=== PATIENT | female | born 1975 | race Caucasian/White ===

== ENCOUNTER 2019-09-20 06:23 | Observation (INO) ==
[2019-09-20] MEDS ORDERED: D5 1/2 NS 1000 ML 1,000 ML IV SCH (06:39)
[2019-09-20] MEDS ORDERED: ANCEF VIAL 1 GRAM IVP ONE (06:39)
[2019-09-20] MEDS ORDERED: ANCEF 1 GRAM IV PREMIX* 1 G/50 ML BAG IV ONE (06:43)
[2019-09-20] MEDS ORDERED: VASOSTRICT INJ 20 UNITS VIAL ONE (07:01)
[2019-09-20] MEDS ORDERED: BETADINE SOLN ONE (07:01)
[2019-09-20] MEDS ORDERED: BETADINE SURGICAL SCRUB ONE (07:02)
[2019-09-20] MEDS ORDERED: DILAUDID INJ ONE (07:07)
[2019-09-20] MEDS ORDERED: FENTANYL INJ 100 mcg ONE (07:07)
[2019-09-20] MEDS ORDERED: QUELICIN (OR ANECTINE) ONE ×2 (07:08→10:30)
[2019-09-20] MEDS ORDERED: PHENERGAN INJ 25 MG IM PRN (08:46)
[2019-09-20] MEDS ORDERED: ZOFRAN INJ 4 MG VIAL IVP PRN (08:46)
[2019-09-20] MEDS ORDERED: DILAUDID INJ IVP PRN (08:46)
[2019-09-20] MEDS ORDERED: REGLAN INJ 10 MG VIAL IVP PRN (08:46)
[2019-09-20] MEDS ORDERED: BENADRYL INJ 50 MG VIAL IVP PRN ×2 (08:46→09:14)
[2019-09-20 08:50] VITALS: BMI 24.6
[2019-09-20] MEDS ORDERED: MORPHINE SULFATE PCA 30 MG IVP PRN (09:14)
[2019-09-20] MEDS ORDERED: TORADOL 30 MG VIAL ONE ×2 (10:04→10:30)
[2019-09-20] MEDS: TORADOL 30 MG VIAL IVP PRN ×3 (10:10→20:26)
[2019-09-20] MEDS ORDERED: VERSED ONE (10:30)
[2019-09-20] MEDS ORDERED: NORCURON INJ 10 MG VIAL ONE (10:30)
[2019-09-20] MEDS ORDERED: NEOSTIGMINE INJ ONE (10:30)
[2019-09-20] MEDS ORDERED: ATROPINE SULFATE ONE (10:30)
[2019-09-20] MEDS ORDERED: ZOFRAN INJ 4 MG VIAL ONE (10:30)
[2019-09-20] MEDS ORDERED: ULTANE GAS IN ONE (10:30)
[2019-09-20] MEDS ORDERED: DIPRIVAN VIAL ONE (10:30)
[2019-09-20] MEDS ORDERED: ROBINUL ONE (10:30)
[2019-09-20] MEDS: D5 1/2 NS 1000 ML 1,000 ML IV SCH ×2 (12:09→20:25)
[2019-09-20] MEDS: ZOFRAN INJ 4 MG VIAL IVP PRN ×2 (14:54→20:29)
[2019-09-20] MEDS ORDERED: PERCOCET TAB 5/325 MG PO PRN (17:54)
[2019-09-20] MEDS ORDERED: COLACE CAP 100 MG PO SCH (21:00)
[2019-09-21] MEDS: TORADOL 30 MG VIAL IVP PRN (00:34)
[2019-09-21] MEDS: D5 1/2 NS 1000 ML 1,000 ML IV SCH ×2 (02:00→10:35)
[2019-09-21 06:20] LABS: BASOPHILS % (AUTO) 0.3 % (0.2-1.0); EOSINOPHILS # (AUTO) 0.1 x10^3/uL (0.0-0.2); EOSINOPHILS % (AUTO) 0.9 % (0.9-2.9); HEMATOCRIT 28.8 % (36.0-47.0); HEMOGLOBIN 9.3 g/dL (12.0-16.0); LYMPHOCYTES # (AUTO) 1.5 X10^3/uL (1.3-2.9); LYMPHOCYTES % (AUTO) 19.8 % (21.0-51.0); MEAN CORPUSCULAR HEMOGLOBIN 25.4 pg (27.0-34.0); MEAN CORPUSCULAR HGB CONC 32.2 g/dL (33.0-35.0); MEAN CORPUSCULAR VOLUME 78.8 fL (80.0-100.0); MEAN PLATELET VOLUME 7.8 fL (7.4-11.0); MONOCYTES # (AUTO) 0.7 x10^3/uL (0.3-0.8); MONOCYTES % (AUTO) 8.7 % (0.0-13.0); NEUTROPHILS # (AUTO) 5.3 x10^3/uL (2.2-4.8); NEUTROPHILS % (AUTO) 70.3 % (42.0-75.0); PLATELET COUNT 342 X10^3/uL (150.0-450.0); RED BLOOD COUNT 3.66 X10^6/uL (3.5-5.4); RED CELL DISTRIBUTION WIDTH 16.1 % (11.6-16.5); WHITE BLOOD COUNT 7.5 X10^3/uL (3.6-10.0)
[2019-09-21 06:30] LABS: BLOOD UREA NITROGEN 3 mg/dL (7-18); CALCIUM 8.2 mg/dL (8.5-10.1); CARBON DIOXIDE 25.1 mmol/L (21-32); CHLORIDE 105 mmol/L (98-107); COR NA(FOR HYPERGLY) 140 mmol/L (136-145); CREATININE 0.66 mg/dL (0.55-1.02); SODIUM 139 mmol/L (136-145); eGFR NON BLACK RACES > 60 (>60)
[2019-09-21 07:13] LABS: HYPOCHROMASIA SLIGHT; PLATELET MORPHOLOGY COMMENT NORMAL (NORMAL)
[2019-09-21 11:20] VITALS: BP 116/59
== END 2019-09-21 11:10 | disposition home or self-care (01) ==
LOC: SURG1 06:23 → MED/SURG 06:23
PROVIDERS: ADMIT Specialist; ATTEND Specialist
DX: N92.5 Other specified irregular menstruation; D50.8 Other iron deficiency anemias; N94.4 Primary dysmenorrhea; R10.2 Pelvic and perineal pain
CPT/HCPCS: 36415; 80048; 85025; A4216; A4222; G0378; J0330; J0461; J0690; J1170; J1885; J2250; J2271; J2405; J2704; J2710; J3010; J3490; S5010

== ENCOUNTER 2021-08-06 13:17 | Observation (INO) ==
[2021-08-06] MEDS ORDERED: TUSSIONEX PENNKINETIC SUSP PO PRN (16:51)
[2021-08-06] MEDS ORDERED: REMDESIVIR 200 MG in NS 250 ML IV 250 ML IV NR (16:53)
[2021-08-06] MEDS: DUONEB 0.5 MG/3 MG (3 mL) NEB SCH ×2 (16:58→21:00)
[2021-08-06] MEDS: PULMICORT NEB TX 0.5 MG NEB SCH ×2 (16:58→21:00)
[2021-08-06] MEDS ORDERED: VITAMIN C PO SCH (17:00)
[2021-08-06 17:04] VITALS: BMI 22.3
[2021-08-06] MEDS: ROBITUSSIN DM PO SCH ×2 (17:45→22:00)
[2021-08-06] MEDS: ZINC SULFATE PO SCH (17:45)
[2021-08-06] MEDS: NS 1/2 1,000 ML IV 1,000 ML IV SCH (17:45)
[2021-08-06] MEDS: LEVAQUIN PREMIX IV 750 MG 750 MG/150 ML BAG IV SCH (17:45)
[2021-08-06] MEDS: VITAMIN D3 125 mcg (5,000 UNITS) PO SCH (17:45)
[2021-08-06] MEDS ORDERED: NS 1/2 1,000 ML IV 1,000 ML IV ONE (17:46)
[2021-08-06 18:12] LABS: BASOPHILS % (AUTO) 0.8 % (0.2-1.0); EOSINOPHILS # (AUTO) 0.1 x10^3/uL (0.0-0.2); EOSINOPHILS % (AUTO) 1.3 % (0.9-2.9); HEMATOCRIT 33.1 % (36.0-47.0); HEMOGLOBIN 11.1 g/dL (12.0-16.0); LYMPHOCYTES # (AUTO) 2.2 X10^3/uL (1.3-2.9); LYMPHOCYTES % (AUTO) 35.1 % (21.0-51.0); MEAN CORPUSCULAR HEMOGLOBIN 27.2 pg (27.0-34.0); MEAN CORPUSCULAR HGB CONC 33.5 g/dL (33.0-35.0); MEAN CORPUSCULAR VOLUME 81.2 fL (80.0-100.0); MEAN PLATELET VOLUME 7.2 fL (7.4-11.0); MONOCYTES # (AUTO) 0.5 x10^3/uL (0.3-0.8); MONOCYTES % (AUTO) 7.6 % (0.0-13.0); NEUTROPHILS # (AUTO) 3.5 x10^3/uL (2.2-4.8); NEUTROPHILS % (AUTO) 55.2 % (42.0-75.0); RED BLOOD COUNT 4.07 X10^6/uL (3.5-5.4); RED CELL DISTRIBUTION WIDTH 15.1 % (11.6-16.5); WHITE BLOOD COUNT 6.3 X10^3/uL (3.6-10.0)
[2021-08-06 18:33] LABS: ALANINE AMINOTRANSFERASE 10 Units/L (12-78); ALBUMIN 3.1 g/dL (3.4-5.0); ALKALINE PHOSPHATASE 87 Units/L (46-116); ASPARTATE AMINO TRANSFERASE 12 Units/L (15-37); BLOOD UREA NITROGEN 11 mg/dL (7-18); CALCIUM 8.5 mg/dL (8.5-10.1); CARBON DIOXIDE 29.4 mmol/L (21-32); CHLORIDE 102 mmol/L (98-107); CKMB % 1.4 % (<4); COR CA(FOR HYPOALB) 9.2 mg/dL (8.5-10.1); CREATINE KINASE 71 Units/L (26-192); CREATINE KINASE MB < 1.0 ng/mL (0-4.0); CREATININE 0.58 mg/dL (0.55-1.02); SODIUM 138 mmol/L (136-145); TOTAL PROTEIN 6.5 g/dL (6.4-8.2); eGFR NON BLACK RACES > 60 (>60)
[2021-08-06] MEDS: SOLU-Medrol 40 MG VIAL IVP SCH (22:00)
[2021-08-06] MEDS ORDERED: POTASSIUM CHL 60 MEQ/NS 0.45% 500 ML IV PRN (23:57)
[2021-08-06] MEDS ORDERED: MICRO K EXTEN CAP 10 MEQ PO PRN (23:57)
[2021-08-06] MEDS ORDERED: MAGNESIUM SULFATE 1 GRAM/100 mL PREMIX 1 G/100 ML BAG IV PRN (23:57)
[2021-08-06] MEDS ORDERED: POTASSIUM CHL 40 MEQ/NS 0.45% 500 ML IV PRN (23:57)
[2021-08-06] MEDS ORDERED: K-RIDER 10 MEQ/NS 100 ML 10 MEQ/100 ML BAG IV PRN (23:57)
[2021-08-06] MEDS ORDERED: KLOR-CON PO PRN (23:57)
[2021-08-06] MEDS ORDERED: POTASSIUM CHLORIDE LIQ 20 MEQ UDC PO PRN (23:57)
[2021-08-06] MEDS ORDERED: K-DUR TAB 20 MEQ PO PRN (23:57)
--- NOTE | 2021-08-07 03:32 | RAD ---
HISTORYCOVID PNEUMONIA Relevant Clinical InformationSTUDYCHEST, 1 VIEWCOMPARISONFINDINGSThe trachea is midline. The cardiac silhouette is unremarkable. The lungs are clear without focal infiltrate or effusion. The bony thorax is unremarkable.IMPRESSIONNo acute cardiopulmonary findings .Electronically signed by: Juan Luis Posadas (August 07, 2021 03:31:25)
[2021-08-07] MEDS ORDERED: NS 1/2 1,000 ML IV 1,000 ML IV ONE ×2 (04:35→21:41)
[2021-08-07 04:51] LABS: BASOPHILS % (AUTO) 0.1 % (0.2-1.0); HEMATOCRIT 32.4 % (36.0-47.0); LYMPHOCYTES # (AUTO) 0.7 X10^3/uL (1.3-2.9); LYMPHOCYTES % (AUTO) 13.4 % (21.0-51.0); MEAN CORPUSCULAR HEMOGLOBIN 27.4 pg (27.0-34.0); MEAN CORPUSCULAR VOLUME 80.5 fL (80.0-100.0); MEAN PLATELET VOLUME 7.1 fL (7.4-11.0); MONOCYTES # (AUTO) 0.1 x10^3/uL (0.3-0.8); MONOCYTES % (AUTO) 1.6 % (0.0-13.0); NEUTROPHILS # (AUTO) 4.6 x10^3/uL (2.2-4.8); NEUTROPHILS % (AUTO) 84.9 % (42.0-75.0); RED BLOOD COUNT 4.02 X10^6/uL (3.5-5.4); RED CELL DISTRIBUTION WIDTH 15.5 % (11.6-16.5); WHITE BLOOD COUNT 5.4 X10^3/uL (3.6-10.0)
[2021-08-07 05:05] LABS: ALANINE AMINOTRANSFERASE 10 Units/L (12-78); ALBUMIN 2.9 g/dL (3.4-5.0); ALKALINE PHOSPHATASE 86 Units/L (46-116); ASPARTATE AMINO TRANSFERASE 13 Units/L (15-37); BLOOD UREA NITROGEN 7 mg/dL (7-18); CALCIUM 7.9 mg/dL (8.5-10.1); CARBON DIOXIDE 25.6 mmol/L (21-32); CHLORIDE 105 mmol/L (98-107); COR CA(FOR HYPOALB) 8.8 mg/dL (8.5-10.1); COR NA(FOR HYPERGLY) 138 mmol/L (136-145); CREATININE 0.59 mg/dL (0.55-1.02); SODIUM 137 mmol/L (136-145); TOTAL PROTEIN 6.3 g/dL (6.4-8.2); eGFR NON BLACK RACES > 60 (>60)
[2021-08-07] MEDS: SOLU-Medrol 40 MG VIAL IVP SCH ×3 (05:24→22:14)
[2021-08-07] MEDS: DUONEB 0.5 MG/3 MG (3 mL) NEB SCH ×3 (05:48→21:00)
--- NOTE | 2021-08-07 06:17 | RAD ---
HISTORYSOB Relevant Clinical InformationSTUDYCHEST, 1 [id number] trachea is midline. The cardiac silhouette is unremarkable. The lungs are clear without focal infiltrate or effusion. The bony thorax is unremarkable.IMPRESSIONNo acute cardiopulmonary findings .Electronically signed by: Juan Luis Posadas (August 07, 2021 06:16:13)
[2021-08-07] MEDS: NS 1/2 1,000 ML IV 1,000 ML IV SCH ×2 (06:31→22:14)
[2021-08-07] MEDS ORDERED: ZOFRAN TAB 4 MG PO PRN (08:34)
[2021-08-07] MEDS: PULMICORT NEB TX 0.5 MG NEB SCH ×2 (09:40→21:00)
[2021-08-07] MEDS: VITAMIN D3 125 mcg (5,000 UNITS) PO SCH (09:45)
[2021-08-07] MEDS: PriLOSEC PO SCH (09:45)
[2021-08-07] MEDS: REMDESIVIR 100 MG in NS 250 ML IV 250 ML IV SCH (09:45)
[2021-08-07] MEDS: ROBITUSSIN DM PO SCH ×3 (09:45→22:13)
[2021-08-07] MEDS: ZINC SULFATE PO SCH (09:45)
[2021-08-07] MEDS: LEVAQUIN PREMIX IV 750 MG 750 MG/150 ML BAG IV SCH (11:30)
--- NOTE | 2021-08-07 11:52 | DR.H&P ---
H&P - History & Physical for Day of: H&P Date: 08/06/21 - Chief Complaint Chief Complaint: COUGH, SOB, FATIGUE, FEVER, NAUSEA, COVID POSITIVE - History of Present Illness History of Present Illness: IS A 46 YEAR OLD PATIENT OF OURS. SHE PRESENTED A DIRECT ADMISSION FOR TREATMENT OF ACUTE BRONCHITIS, COVID-19, FAILED OUTPATIENT TREATMENT. PATIENT COMPLAINED OF PERSISTENT NON-PRODUCTIVE COUGH, SHORTNESS OF BREATH, FATIGUE, FEVER, NAUSEA, AND GENERALIZED WEAKNESS SINCE 08/02/21. SHE TESTED POSITIVE FOR COVID ON 08/03/21. SHE HAS BEEN TAKING A MEDROL DOSEPACK, DOXYCYCLINE 100MG PO BID, PAXLOVID, BPOMPHED, AND ZOFRAN. SHE DENIES SIGNIFICANT IMPROVEMENT IN SYMPTOMS DESPITE COMPLIANCE WITH MEDICATIONS. ON ARRIVAL TO THE HOSPITAL, VITALS WERE 98.1-92-18-99%-138/71. LABS WERE OBTAINED. WBC 6.3, RBC 4.07, HGB 11.1, HCT 33.1, SODIUM 138, POTASSIUM 2.9, CHLORIDE 102, BUN 11, CREATININE 0.58, GLUCOSE 87, CALCIUM 8.5, AST 12, ALT 10, ALK PHOS 87, CRP 18.80, TOTAL PROTEIN 6.5, ALBUMIN 3.1. CARDIAC ENZYMES WERE WITHIN NORMAL LIMITS. COVID-19 POSITIVE. BLOOD CULTURES WERE SET UP. A CHEST XRAY WAS OBTAINED AND REVEALED: NO ACUTE CARDIOPULMONARY FINDINGS. EKG REVEALED: NORMAL SINUS RHYTHM WITH HR 79. ON ADMISSION, SHE WAS STARTED ON NS AT 75 ML/HR, REMDESIVIR 100MG IV DAILY, LEVAQUIN 750MG IV DAILY, DUONEBS TID, PULMICORT NEBS BID, TUSSIONEX 5ML PO Q12H PRN COUGH, ROBITUSSIN DM 10ML PO QID, SOLU-MEDROL 80MG IV Q8H, VITAMIN C 500MG PO DAILY, ZINC 220MG PO DAILY, THE POTASSIUM AND MAGNESIUM PROTOCOLS, AND HER HOME MEDICATIONS WERE RESUMED. OTHERWISE, WE PLAN TO FOLLOW-UP WITH AM LABS AND CHEST XRAY AND CONTINUE TO MONITOR. TIME SPENT ON CLINICAL ASSESSMENT, REVIEWING LABS AND IMAGING, DECISION MAKING, AND DOCUMENTATION GREATER THAN 75 MINUTES. - Past Medical History Past Medical History: Anemia - Past Surgical History Surgical History: , Hysterectomy, Other - Social History Does patient currently use any type of tobacco product: No Have you used tobacco products in the last 12 months: No Type of Tobacco Use: None Does any household member use tobacco: No Alcohol Use: None Drug Use: None - Medications Home Medications: Sulfa (Sulfonamide Antibiotics) [SULFA] Allergy (Verified 09/20/19 06:39) CONTINUE taking the following medications doxycycline hyclate 100 mg PO BID 08/06/21 [History] methylprednisolone See Rx Instructions .ROUTE .COMPLEX 08/06/21 [History] metoprolol succinate 50 mg PO DAILY 08/06/21 [History] nirmatrelvir-ritonavir [Paxlovid (EUA)] 3 tab PO PER PKG DIR 08/06/21 [History] omeprazole 40 mg PO DAILY 08/06/21 [History] zolpidem 10 mg PO QHS 08/06/21 [History] - Review of Systems Constitutional: Fever, Weakness Eyes: No Symptoms Reported ENT: Nose Congestion Respiratory: Cough, Shortness of Breath, SOB with Excertion Gastrointestinal: Nausea Genitourinary: No Symptoms Reported Musculoskeletal: No Symptoms Reported Skin: No Symptoms Reported Neurological: Weakness - Physical Exam Vital Signs: Temperature 98.2 F Pulse Rate [Bilateral Radial] 93 Pulse Rate 105 Respiratory Rate 20 Blood Pressure [Right Arm] 108/56 Blood Pressure 138/64 O2 Sat by Pulse Oximetry 97 Oriented: Normal Eyes: Normal Ear: Normal Nose: Normal Throat: Normal Respiratory: Diminished Throughout Cardiovascular: Normal : Normal Auscultation: Bowel Sounds: Normal Palpation: Normal Tenderness: Normal Skin: Normal Musculoskeletal: Normal Psychiatric: Normal Mood Description: Calm Affect: Normal Speech Pattern: Clear - Assessment/Plan (1) Acute bronchitis due to COVID-19 virus Status: Acute Plan: ADMIT, NS AT 75 ML/HR, REMDESIVIR 100MG IV DAILY, LEVAQUIN 750MG IV DAILY, DUONEBS TID, PULMICORT NEBS BID, TUSSIONEX 5ML PO Q12H PRN COUGH, ROBITUSSIN DM 10ML PO QID, SOLU-MEDROL 80MG IV Q8H, VITAMIN C 500MG PO DAILY, ZINC 220MG PO DAILY, THE POTASSIUM AND MAGNESIUM PROTOCOLS, AND HER HOME MEDICATIONS WERE RESUMED. - Allergies Allergies/Adverse Reactions: Allergies Allergy/AdvReac Type Severity Reaction Status Date / Time Sulfa (Sulfonamide Allergy Verified 09/20/19 06:39 Antibiotics) [SULFA]
[2021-08-07] MEDS: VITAMIN C PO SCH ×3 (14:00→22:14)
[2021-08-07] MEDS ORDERED: AMBIEN PO SCH (21:00)
[2021-08-08 04:59] LABS: BASOPHILS % (AUTO) 0 % (0.2-1.0); HEMATOCRIT 30.2 % (36.0-47.0); HEMOGLOBIN 10.4 g/dL (12.0-16.0); LYMPHOCYTES % (AUTO) 9.9 % (21.0-51.0); MEAN CORPUSCULAR HEMOGLOBIN 27.7 pg (27.0-34.0); MEAN CORPUSCULAR HGB CONC 34.3 g/dL (33.0-35.0); MEAN CORPUSCULAR VOLUME 80.6 fL (80.0-100.0); MONOCYTES # (AUTO) 0.3 x10^3/uL (0.3-0.8); MONOCYTES % (AUTO) 2.5 % (0.0-13.0); NEUTROPHILS # (AUTO) 8.8 x10^3/uL (2.2-4.8); NEUTROPHILS % (AUTO) 87.6 % (42.0-75.0); RED BLOOD COUNT 3.75 X10^6/uL (3.5-5.4); RED CELL DISTRIBUTION WIDTH 15.3 % (11.6-16.5); WHITE BLOOD COUNT 10.1 X10^3/uL (3.6-10.0)
[2021-08-08] MEDS: SOLU-Medrol 40 MG VIAL IVP SCH (05:17)
[2021-08-08 05:35] LABS: ALANINE AMINOTRANSFERASE 9 Units/L (12-78); ALBUMIN 2.6 g/dL (3.4-5.0); ALKALINE PHOSPHATASE 80 Units/L (46-116); ASPARTATE AMINO TRANSFERASE 11 Units/L (15-37); BLOOD UREA NITROGEN 9 mg/dL (7-18); CALCIUM 8.2 mg/dL (8.5-10.1); CHLORIDE 106 mmol/L (98-107); COR CA(FOR HYPOALB) 9.3 mg/dL (8.5-10.1); COR NA(FOR HYPERGLY) 141 mmol/L (136-145); CREATININE 0.56 mg/dL (0.55-1.02); SODIUM 140 mmol/L (136-145); TOTAL PROTEIN 5.7 g/dL (6.4-8.2); eGFR NON BLACK RACES > 60 (>60)
--- NOTE | 2021-08-08 05:39 | RAD ---
HISTORYSOB; COVID PNEUMONIA Relevant Clinical InformationSTUDYCHEST, 1 [id number] trachea is midline. The cardiac silhouette is unremarkable. The lungs are clear without focal infiltrate or effusion. The bony thorax is unremarkable.IMPRESSIONNormal chest .Electronically signed by: Juan Luis Posadas (August 08, 2021 05:38:36)
[2021-08-08] MEDS: DUONEB 0.5 MG/3 MG (3 mL) NEB SCH (06:02)
[2021-08-08] MEDS: REMDESIVIR 100 MG in NS 250 ML IV 250 ML IV SCH (09:13)
[2021-08-08] MEDS: VITAMIN D3 125 mcg (5,000 UNITS) PO SCH (09:14)
[2021-08-08] MEDS: VITAMIN C PO SCH (09:14)
[2021-08-08] MEDS: ZINC SULFATE PO SCH (09:14)
[2021-08-08] MEDS: PriLOSEC PO SCH (09:14)
[2021-08-08] MEDS: ROBITUSSIN DM PO SCH (09:14)
[2021-08-08] MEDS: PULMICORT NEB TX 0.5 MG NEB SCH (09:40)
[2021-08-08 11:21] VITALS: BP 107/55
[2021-08-08] MEDS: LEVAQUIN PREMIX IV 750 MG 750 MG/150 ML BAG IV SCH (12:53)
[2021-08-08] MEDS: NS 1/2 1,000 ML IV 1,000 ML IV SCH (12:53)
== END 2021-08-08 12:30 | disposition home or self-care (01) ==
LOC: MED/SURG
PROVIDERS: ADMIT Internal Medicine; ATTEND Internal Medicine
DX: J20.8 Acute bronchitis due to other specified organisms; U07.1 COVID-19